=== PATIENT | female | born 1995 | race Caucasian/White ===

== ENCOUNTER 2023-09-19 09:51 | Emergency (ER) | payer MEDICAID ==
[~2023-09-19] VITALS: Ht 165.1 cm; Wt 63.1 kg
[2023-09-19 10:01] VITALS: BP 116/78; PULSE 109; RESP 16; TEMP 98.6; O2SAT 100
[2023-09-19 10:21] LABS: BASOPHILS # (AUTO) 0.1 X10'3 (0-0.2); BASOPHILS % (AUTO) 0.8 % (0-1); EOSINOPHILS # (AUTO) 0.1 X10'3 (0-0.9); EOSINOPHILS % (AUTO) 0.9 % (0-6); HEMATOCRIT 40.4 % (35.0-45.0); LYMPHOCYTES # (AUTO) 3.4 X10'3 (1.1-4.8); LYMPHOCYTES % (AUTO) 27.7 % (21-51); MEAN CORPUSCULAR HEMOGLOBIN 30.7 PG (27.0-31.0); MEAN CORPUSCULAR HGB CONC 34.7 g/dL (33.0-36.5); MEAN CORPUSCULAR VOLUME 88.4 FL (78-98); MONOCYTES # (AUTO) 1.2 X10'3 (0-0.9); MONOCYTES % (AUTO) 9.7 % (2-12); NEUTROPHILS # (AUTO) 7.6 X10'3 (1.8-7.7); NEUTROPHILS % (AUTO) 60.9 % (42-75); PLATELET COUNT 335 X10'3 (140-440); RED BLOOD COUNT 4.56 X10'6 (4.20-5.60); RED CELL DISTRIBUTION WIDTH 12.8 % (11.5-14.5); WHITE BLOOD COUNT 12.5 X10'3 (4.5-11.0)
[2023-09-19 10:46] LABS: ALBUMIN 4.3 G/DL (3.4-5.0); ANION GAP 13 (8-16); BLOOD UREA NITROGEN 11 MG/DL (7-18); BUN/CREATININE RATIO 14.9 (10.0-20.0); CALCIUM 9.6 MG/DL (8.5-10.1); CHLORIDE 101 MMOL/L (99-107); CREATININE 0.74 MG/DL (0.40-0.90); GLUCOSE 85 MG/DL (70-104); POTASSIUM 3.6 MMOL/L (3.5-5.1); PRO BRAIN NATRIURETIC PEPTIDE 31 PG/ML (0-125); SODIUM 134 MMOL/L (135-145); eCRCL 102 ML/MIN; eGFR > 90 ML/MIN
== END 2023-09-19 13:15 | disposition left against medical advice (07) ==
LOC: ER 09:51
DX: R07.89 Other chest pain (principal); Z53.21 Procedure and treatment not carried out due to patient leaving prior to being seen by health care provider
CPT/HCPCS: 36415; 71045; 80048; 83880; 84484; 85025; 93005

== ENCOUNTER 2023-12-24 00:58 | Emergency (ER) | payer MEDICAID ==
[~2023-12-24] VITALS: Ht 172.7 cm; Wt 63.4 kg
[2023-12-24 01:05] VITALS: BP 111/71; PULSE 103; TEMP 98.1; O2SAT 100
[2023-12-24 02:00] VITALS: RESP 16
[2023-12-24] MEDS: ketorolac trometh 15mg/ml vial 15 MG/ML ML IV ONE (02:00)
[2023-12-24] MEDS: clindamycin 600mg/D5W 50ml 50 ML IV ONE (02:02)
[2023-12-24] MEDS ORDERED: iohexol 300mg/ml 100ml inj. ONE (02:10)
[2023-12-24] MEDS: dexamethasone sod phosphate 10mg/ml inj IV STA (03:32)
[2023-12-24] MEDS ORDERED: CLIN-214 PO (03:35)
[2023-12-24] MEDS ORDERED: HYDR-3965 PO (03:35)
== END 2023-12-24 03:45 | disposition home or self-care (01) ==
LOC: ER 00:59
DX: K04.7 Periapical abscess without sinus (principal); R51.9 Headache, unspecified
CPT/HCPCS: 70491; 96365; 96375; 99285; J1100; J1885; J3490; Q9967